=== PATIENT | female | born 1940 | race Caucasian/White ===

== ENCOUNTER → 2019-11-14 13:05 | Outpatient (CLI) | payer MEDICARE, SELFPAY ==
--- NOTE | 2019-11-14 13:27 | DI.CT.S_ITS ---
PROCEDURE: CT CHEST W CON INDICATIONS: Lobar pneumonia, unspecified organism TECHNIQUE: After the administration of intravenous contrast, 5 mm thick sections acquired from the pulmonary apices to the posterior costophrenic angles. 1 mm axial lung, 5 mm thick coronal and sagittal reformats and 7 mm axial MIP were acquired. For radiation dose reduction, the following was used: automated exposure control, adjustment of mA and/or kV according to patient size. COMPARISON: None. FINDINGS: Image quality: Excellent. Lungs and pleura: Loculated pleural effusion in posterior right lower lung field is seen with peripheral enhancement and measures up to 9.9 x 8.9 x 9.4 cm in largest transverse, AP and craniocaudal dimensions. Adjacent right lower lobe atelectasis is seen. There is also airspace consolidation with central cavitation seen in posterior aspect of right upper lobe along the oblique fissure with associated adjacent atelectasis and bronchiectasis seen in right upper and middle lobe extending to right hilar region. This cavitary space measures up to 4.9 x 2.9 x 9 cm in size with small amount of air-fluid level in its dependent portion. No pneumothorax. Left lung is clear. Central and left peripheral airways are patent and are normal in size. No left-sided pleural effusion. Mediastinum: Heart size is mildly enlarged. No pericardial effusion. Enlarged mediastinal and hilar lymph nodes are seen measures up to 1.5 cm in short axis diameter in precarinal space and 1.7 cm in short axis diameter in right hilar region. Thoracic aorta and central pulmonary arteries are normal in size. Esophagus is normal in caliber. No hiatal hernia. Bones and chest wall: No suspicious bony lesions. No vertebral body compression fractures. No axillary or supraclavicular adenopathy by size criteria. Thyroid gland is within normal limits. Abdomen: Visualized upper abdominal solid organs show well-circumscribed 1 cm hypodensity in anterior right lobe of liver which may represent hepatic cyst . Upper abdominal bowel loops are normal in caliber. IMPRESSION: 1. Cavitary lesion with adjacent atelectasis and internal air-fluid level in posterior aspect of right upper lobe along right major fissure and measures up to 4.9 x 2.9 x 9 cm in size with associated adjacent right upper and lower lobe bronchiectasis and extension to right hilar region. Finding may represent infectious process. Cavitary neoplasm cannot be excluded. 2. Loculated right pleural effusion as above, developing empyema cannot be excluded, consider aspiration of the fluid for more definitive diagnosis. 3. Enlarged mediastinal and hilar lymph nodes suggestive of reactive inflammatory lymphadenopathy. 4. Left lung is clear. Dictated by: Sylvester Hannah M.D. on 11/14/2019 at 16:40 Approved by: Sylvester Hannah M.D. on 11/14/2019 at 16:51
== END ==
PROVIDERS: PCP Family Medicine; Referring Provider Family Medicine; Visit Provider Family Medicine
DX: J18.1 Lobar pneumonia, unspecified organism (principal); R93.89 Abnormal findings on diagnostic imaging of other specified body structures; R63.4 Abnormal weight loss; J90 Pleural effusion, not elsewhere classified; R59.0 Localized enlarged lymph nodes
CPT/HCPCS: 71260; Q9967

== ENCOUNTER → 2022-03-02 14:18 | Outpatient (CLI) | payer MEDICARE, SELFPAY ==
[2022-03-02 19:37] LABS: Add Manual Diff / Slide Review NO; Basophils Absolute Auto 0 /uL (0-100); Basophils Percent Auto 0.6 % (0-2); Eosinophils Absolute Auto 100 /uL (0-450); Eosinophils Percent Auto 1.9 % (2-4); Hematocrit 38.3 % (36-46); Hemoglobin 12.9 g/dL (12.0-16.0); Lymphocytes Absolute Auto 800 /uL (1100-4500); Lymphocytes Percent Auto 15.6 % (25-40); Mean Corpuscular HGB Conc 33.8 % (30-36); Mean Corpuscular Hemoglobin 32.7 PG (26-34); Mean Corpuscular Volume 96.6 fL (80-100); Monocytes Absolute Auto 500 /uL (0-900); Monocytes Percent Auto 9.8 % (3-14); Neutrophils Absolute Auto 3700 /uL (1500-7000); Neutrophils Percent Auto 72.1 % (50-75); Platelet Count 280 X10^3/uL (150-400); Red Blood Cell Count 3.96 X10^6/uL (4.0-5.2); Red Cell Distribution Width 12.7 % (11.6-14.8); White Blood Cell Count 5.1 X10^3/uL (4.5-11.0)
[2022-03-02 19:47] LABS: HEMOLYSIS < 15 (0-50); Iron 118 ug/dL (37-170)
[2022-03-02 19:49] LABS: Alanine Aminotransferase 24 IU/L (<35); Albumin 4.1 g/dL (3.5-5.0); Albumin Globulin Ratio 1.2 (1.0-2.8); Alkaline Phosphatase 39 U/L (38-126); Aspartate Aminotransferase 26 IU/L (14-36); Bilirubin Total 0.5 mg/dL (0.2-1.3); Blood Urea Nitrogen 17 mg/dL (7-17); Calcium 9.7 mg/dL (8.4-10.2); Carbon Dioxide 30 mmol/L (22-32); Chloride 94 mmol/L (98-107); Estimated Glomerular Filt Rate > 60 mL/min (>60); Globulin 3.3 g/dL (1.7-4.1); Glucose 93 mg/dL (80-110); HEMOLYSIS < 15 (0-50); Magnesium 1.9 mg/dL (1.6-2.3); Potassium 4.7 mmol/L (3.4-5.1); Sodium 130 mmol/L (137-145); Total Protein 7.4 g/dL (6.3-8.2)
[2022-03-02 19:51] LABS: Hemoglobin A1C% w Est Avg Glu 5.2 % (4.0-6.0)
[2022-03-02 19:57] LABS: Appearance Urine UA CLEAR; Bilirubin Urine UA NEGATIVE (NEGATIVE); Color Urine UA YELLOW; Glucose Urine UA NEGATIVE (Negative); Ketones Urine UA NEGATIVE (NEGATIVE); Leukocyte Esterase Urine UA NEGATIVE (NEGATIVE); Nitrite Urine UA NEGATIVE (Negative); Occult Blood Urine UA NEGATIVE (Negative); Protein Urine UA NEGATIVE (Negative); Specific Gravity Urine UA 1.015 (1.000-1.035); Urobilinogen Urine UA 0.2 E.U./dL (0.2)
[2022-03-02 19:58] LABS: NT-proBNP (BNP-Adult 18+) 841 pg/mL (<450)
[2022-03-02 20:00] LABS: Percent Iron Saturation 36 % (15-50); Total Iron Binding Capacity 326 ug/dL (265-497); Transferrin 257 mg/dL (206-381)
[2022-03-02 20:05] LABS: Free T3, Triiodothyronine Free 3.27 pg/mL (2.77-5.27); Free T4, Direct Thyroxine 1.13 ng/dL (0.78-2.19)
[2022-03-02 20:19] LABS: Bacteria Urine Occasional (0-1); Culture Indicated Urine Cult Not Indicated; RBC Urine 0-1/HPF (0-5/HPF); Squamous Epithelial Cell Urine 0-1 /HPF (0-5/HPF); Thyroid Stimulating Hormone 1.49 uIU/mL (0.47-4.68); WBC Urine 0-1/HPF (0-5/HPF)
[2022-03-02 20:24] LABS: Ferritin 85 ng/mL (11-264)
[2022-03-02 20:56] LABS: Folate > 20.0 ng/mL (2.76-20.0); Vitamin B12 > 1000 pg/mL (239-931)
[2022-03-05 15:21] LABS: Immunoglobulin A, Serum 264 mg/dL (64-422); Immunoglobulin G,Serum 1280 mg/dL (586-1602); Immunoglobulin M, Serum 44 mg/dL (26-217)
== END ==
PROVIDERS: Internal Medicine Cardiovascular Disease; PCP Family Medicine
DX: R00.1 Bradycardia, unspecified (principal); R73.09 Other abnormal glucose; R06.02 Shortness of breath; I10 Essential (primary) hypertension; J90 Pleural effusion, not elsewhere classified; D64.9 Anemia, unspecified; E03.2 Hypothyroidism due to medicaments and other exogenous substances; R35.1 Nocturia; R73.01 Impaired fasting glucose; R93.89 Abnormal findings on diagnostic imaging of other specified body structures; Z87.891 Personal history of nicotine dependence; R53.81 Other malaise
CPT/HCPCS: 80053; 81001; 82607; 82728; 82746; 82784; 83036; 83540; 83550; 83735; 83880; 84155; 84439; 84443; 84481; 85025; 86334; 86335; 87086

== ENCOUNTER → 2022-03-03 09:27 | Outpatient (CLI) | payer MEDICARE, SELFPAY ==
[2022-03-03 20:17] LABS: LDL Cholesterol Direct 118 mg/dL (<100)
== END ==
PROVIDERS: PCP Family Medicine
DX: I10 Essential (primary) hypertension (principal)
CPT/HCPCS: 83721

== ENCOUNTER → 2022-07-28 13:34 | Outpatient (CLI) | payer MEDICARE, SELFPAY ==
[2022-07-28 19:54] LABS: HEMOLYSIS < 15 (0-50); Iron 97 ug/dL (37-170)
[2022-07-28 20:04] LABS: Magnesium 1.9 mg/dL (1.6-2.3)
[2022-07-28 20:07] LABS: Alanine Aminotransferase 25 IU/L (<35); Albumin 4.4 g/dL (3.5-5.0); Albumin Globulin Ratio 1.3 (1.0-2.8); Alkaline Phosphatase 46 U/L (38-126); Aspartate Aminotransferase 29 IU/L (14-36); BUN Creatinine Ratio 21.8 (6-22); Bilirubin Total 0.4 mg/dL (0.2-1.3); Blood Urea Nitrogen 17 mg/dL (7-17); Calcium 9.5 mg/dL (8.4-10.2); Carbon Dioxide 30 mmol/L (22-32); Chloride 88 mmol/L (98-107); Estimated Glomerular Filt Rate > 60 mL/min (>60); Globulin 3.3 g/dL (1.7-4.1); Glucose 127 mg/dL (80-110); HEMOLYSIS < 15 (0-50); Percent Iron Saturation 28 % (15-50); Potassium 4.7 mmol/L (3.4-5.1); Sodium 127 mmol/L (137-145); Total Iron Binding Capacity 343 ug/dL (265-497); Total Protein 7.7 g/dL (6.3-8.2); Transferrin 263 mg/dL (206-381)
[2022-07-28 20:08] LABS: NT-proBNP (BNP-Adult 18+) 289 pg/mL (<450)
[2022-07-29 20:36] LABS: x Labcorp Estim. Avg Glu (eAG) 120 mg/dL (.); x Labcorp Hemoglobin A1c 5.8 % (4.8-5.6)
[2022-08-02 17:07] LABS: Immunoglobulin A, Serum 291 mg/dL (64-422); Immunoglobulin G,Serum 1318 mg/dL (586-1602); Immunoglobulin M, Serum 44 mg/dL (26-217)
== END ==
PROVIDERS: Internal Medicine Cardiovascular Disease; PCP Family Medicine
DX: R06.02 Shortness of breath; I10 Essential (primary) hypertension; J90 Pleural effusion, not elsewhere classified; Z87.891 Personal history of nicotine dependence; R93.89 Abnormal findings on diagnostic imaging of other specified body structures; I49.3 Ventricular premature depolarization; D64.9 Anemia, unspecified; R35.1 Nocturia; R73.09 Other abnormal glucose
CPT/HCPCS: 80053; 82784; 83036; 83540; 83550; 83735; 83880; 84155; 86334; 86335

== ENCOUNTER → 2022-08-25 11:57 | Outpatient (CLI) | payer MEDICARE, SELFPAY ==
[2022-08-25 20:36] LABS: Sodium Urine Random 41 mmol/L (30-90)
[2022-08-25 20:42] LABS: BUN Creatinine Ratio 21.2 (6-22); Blood Urea Nitrogen 18 mg/dL (7-17); Calcium 9.6 mg/dL (8.4-10.2); Carbon Dioxide 32 mmol/L (22-32); Chloride 92 mmol/L (98-107); Estimated Glomerular Filt Rate > 60 mL/min (>60); Glucose 88 mg/dL (80-110); HEMOLYSIS < 15 (0-50); Potassium 4.7 mmol/L (3.4-5.1); Sodium 130 mmol/L (137-145)
[2022-08-27 15:16] LABS: Osmolality Urine 423 mOsmol/kg (.); Osmolality, Serum 275 mOsmol/kg (280-301)
== END ==
PROVIDERS: PCP Family Medicine; Visit Provider Family Medicine
DX: E87.1 Hypo-osmolality and hyponatremia (principal); I10 Essential (primary) hypertension; R55 Syncope and collapse; R73.03 Prediabetes
CPT/HCPCS: 80048; 83930; 83935; 84300; 84588

== ENCOUNTER → 2022-08-26 09:10 | Outpatient (CLI) | payer MEDICARE, SELFPAY ==
[2022-08-26 20:20] LABS: Cortisol AM (Before 10AM) 14.6 ug/dL (4.46-22.7)
== END ==
PROVIDERS: PCP Family Medicine; Visit Provider Family Medicine
DX: E87.1 Hypo-osmolality and hyponatremia (principal); I10 Essential (primary) hypertension; R55 Syncope and collapse; R73.03 Prediabetes
CPT/HCPCS: 82533

== ENCOUNTER → 2022-12-09 13:00 | Outpatient (CLI) | payer MEDICARE, SELFPAY ==
[2022-12-09 19:55] LABS: BUN Creatinine Ratio 20.7 (6-22); Blood Urea Nitrogen 17 mg/dL (7-17); Calcium 10.1 mg/dL (8.4-10.2); Carbon Dioxide 30 mmol/L (22-32); Chloride 93 mmol/L (98-107); Estimated Glomerular Filt Rate > 60 mL/min (>60); Glucose 129 mg/dL (80-110); HEMOLYSIS < 15 (0-50); Potassium 4.9 mmol/L (3.4-5.1); Sodium 131 mmol/L (137-145)
[2022-12-09 20:03] LABS: NT-proBNP (BNP-Adult 18+) 432 pg/mL (<450)
== END ==
PROVIDERS: PCP Family Medicine; Visit Provider Family Medicine
DX: I50.9 Heart failure, unspecified (principal); E87.1 Hypo-osmolality and hyponatremia; R79.89 Other specified abnormal findings of blood chemistry
CPT/HCPCS: 80048; 83880

== ENCOUNTER → 2023-07-06 11:27 | Outpatient (CLI) | payer MEDICARE, SELFPAY ==
[2023-07-06 21:15] LABS: BUN Creatinine Ratio 34.4 (6-22); Blood Urea Nitrogen 33 mg/dL (7-17); Carbon Dioxide 32 mmol/L (22-32); Chloride 99 mmol/L (98-107); Estimated Glomerular Filt Rate 58 mL/min (>60); Glucose 90 mg/dL (80-110); HEMOLYSIS < 15 (0-50); Potassium 4.8 mmol/L (3.4-5.1); Sodium 133 mmol/L (137-145)
[2023-07-06 21:27] LABS: Hemoglobin A1C% w Est Avg Glu 5.8 % (4.0-6.0)
== END ==
PROVIDERS: PCP Family Medicine; Visit Provider Family Medicine
DX: R73.03 Prediabetes (principal); E87.1 Hypo-osmolality and hyponatremia
CPT/HCPCS: 80048; 83036

== ENCOUNTER → 2023-08-10 10:54 | Outpatient (CLI) | payer MEDICARE, SELFPAY ==
[2023-08-10 20:18] LABS: BUN Creatinine Ratio 25.5 (6-22); Blood Urea Nitrogen 25 mg/dL (7-17); Calcium 9.6 mg/dL (8.4-10.2); Carbon Dioxide 31 mmol/L (22-32); Chloride 96 mmol/L (98-107); Estimated Glomerular Filt Rate 57 mL/min (>60); Glucose 70 mg/dL (80-110); HEMOLYSIS < 15 (0-50); Potassium 4.5 mmol/L (3.4-5.1); Sodium 131 mmol/L (137-145)
== END ==
PROVIDERS: PCP Family Medicine; Visit Provider Family Medicine
DX: G47.00 Insomnia, unspecified (principal)
CPT/HCPCS: 80048

== ENCOUNTER → 2023-11-15 14:47 | Outpatient (CLI) | payer MEDICARE, SELFPAY | PROVIDERS: PCP Family Medicine; Visit Provider Physician Assistant Medical | DX: R30.0 Dysuria (principal) | CPT/HCPCS: 87086 ==

== ENCOUNTER → 2024-01-24 14:26 | Outpatient (CLI) | payer MEDICARE, SELFPAY ==
[2024-01-24 19:38] LABS: Blood Urea Nitrogen 25 mg/dL (7-17); Calcium 10.1 mg/dL (8.4-10.2); Carbon Dioxide 33 mmol/L (22-32); Chloride 96 mmol/L (98-107); Estimated Glomerular Filt Rate 58 mL/min (>60); Glucose 141 mg/dL (80-110); HEMOLYSIS < 15 (0-50); Potassium 4.3 mmol/L (3.4-5.1); Sodium 132 mmol/L (137-145)
== END ==
PROVIDERS: PCP Family Medicine; Referring Provider Family Medicine; Visit Provider Family Medicine
DX: I10 Essential (primary) hypertension (principal); E87.1 Hypo-osmolality and hyponatremia
CPT/HCPCS: 80048

== ENCOUNTER → 2024-02-16 11:20 | Outpatient (CLI) | payer MEDICARE, SELFPAY ==
[2024-02-16 20:06] LABS: Add Manual Diff / Slide Review NO; Basophils Absolute Auto 0 /uL (0-100); Basophils Percent Auto 0.7 % (0-2); Eosinophils Absolute Auto 200 /uL (0-450); Eosinophils Percent Auto 3.9 % (2-4); Hemoglobin 13.1 g/dL (12.0-16.0); Lymphocytes Absolute Auto 800 /uL (1100-4500); Lymphocytes Percent Auto 19.1 % (25-40); Mean Corpuscular HGB Conc 33.5 % (30-36); Mean Corpuscular Hemoglobin 32.3 PG (26-34); Mean Corpuscular Volume 96.4 fL (80-100); Monocytes Absolute Auto 400 /uL (0-900); Monocytes Percent Auto 9.9 % (3-14); Neutrophils Absolute Auto 2900 /uL (1500-7000); Neutrophils Percent Auto 66.4 % (50-75); Platelet Count 315 X10^3/uL (150-400); Red Blood Cell Count 4.04 X10^6/uL (4.0-5.2); Red Cell Distribution Width 12.7 % (11.6-14.8); White Blood Cell Count 4.3 X10^3/uL (4.5-11.0)
[2024-02-16 20:17] LABS: HEMOLYSIS < 15 (0-50); Iron 122 ug/dL (37-170)
[2024-02-16 20:21] LABS: Appearance Urine UA CLEAR; Bilirubin Urine UA NEGATIVE (NEGATIVE); Color Urine UA YELLOW; Glucose Urine UA NEGATIVE (Negative); Ketones Urine UA NEGATIVE (NEGATIVE); Leukocyte Esterase Urine UA NEGATIVE (NEGATIVE); Nitrite Urine UA NEGATIVE (Negative); Occult Blood Urine UA NEGATIVE (Negative); Protein Urine UA NEGATIVE (Negative); Urobilinogen Urine UA 0.2 E.U./dL (0.2)
[2024-02-16 20:35] LABS: Alanine Aminotransferase 29 IU/L (<35); Albumin 4.2 g/dL (3.5-5.0); Albumin Globulin Ratio 1.2 (1.0-2.8); Alkaline Phosphatase 48 U/L (38-126); Aspartate Aminotransferase 35 IU/L (14-36); BUN Creatinine Ratio 21.7 (6-22); Bilirubin Total 0.6 mg/dL (0.2-1.3); Blood Urea Nitrogen 20 mg/dL (7-17); Calcium 9.9 mg/dL (8.4-10.2); Carbon Dioxide 31 mmol/L (22-32); Chloride 99 mmol/L (98-107); Estimated Glomerular Filt Rate > 60 mL/min (>60); Globulin 3.4 g/dL (1.7-4.1); Glucose 92 mg/dL (80-110); HEMOLYSIS < 15 (0-50); Magnesium 1.8 mg/dL (1.6-2.3); Percent Iron Saturation 42 % (15-50); Potassium 4.5 mmol/L (3.4-5.1); Sodium 133 mmol/L (137-145); Total Iron Binding Capacity 288 ug/dL (265-497); Total Protein 7.6 g/dL (6.3-8.2); Transferrin 268 mg/dL (206-381)
[2024-02-16 20:36] LABS: NT-proBNP (BNP-Adult 18+) 436 pg/mL (<450)
[2024-02-16 20:45] LABS: Amorphous Sediment Urine 1+; Bacteria Urine None Seen; Culture Indicated Urine Cult Not Indicated; RBC Urine None Seen (0-5/HPF); Squamous Epithelial Cell Urine None Seen (0-5/HPF); Urine Volume 10mL (spun); WBC Urine None Seen (0-5/HPF)
[2024-02-16 21:01] LABS: Ferritin 80 ng/mL (11-264)
[2024-02-16 21:27] LABS: Folate > 20.0 ng/mL (2.76-20.0); Vitamin B12 > 1000 pg/mL (239-931)
== END ==
PROVIDERS: Internal Medicine Cardiovascular Disease; PCP Family Medicine
DX: I49.3 Ventricular premature depolarization (principal); R06.02 Shortness of breath; R77.1 Abnormality of globulin; D64.9 Anemia, unspecified; R35.1 Nocturia
CPT/HCPCS: 80053; 81001; 82607; 82728; 82746; 82784; 83540; 83550; 83735; 83880; 83883; 84155; 85025; 86334; 86335

== ENCOUNTER → 2025-01-14 10:57 | Outpatient (CLI) | payer MEDICARE, SELFPAY ==
[2025-01-14 19:05] LABS: Add Manual Diff / Slide Review NO; Hematocrit 38.6 % (36-46); Hemoglobin 13.2 g/dL (12.0-16.0); Lymphocytes Absolute Auto 1000 /uL (1100-4500); Mean Corpuscular HGB Conc 34.1 % (30-36); Mean Corpuscular Hemoglobin 32.0 PG (26-34); Mean Corpuscular Volume 93.8 fL (80-100); Platelet Count 289 X10^3/uL (150-400)
[2025-01-14 19:26] LABS: Blood Urea Nitrogen 28 mg/dL (7-17); Calcium 9.9 mg/dL (8.4-10.2); Carbon Dioxide 30 mmol/L (22-32); Chloride 97 mmol/L (98-107); Cholesterol 252 mg/dL (140-199); Estimated Glomerular Filt Rate 57 mL/min (>60); Glucose 106 mg/dL (70-99); HDL Cholesterol 102 mg/dL (40-60); HEMOLYSIS < 15 (0-50); Potassium 4.4 mmol/L (3.4-5.1); Sodium 134 mmol/L (137-145); Triglycerides 66 mg/dL (35-150)
[2025-01-14 19:47] LABS: TSH w/ Reflex to FT4 2.55 uIU/mL (0.47-4.68)
== END ==
PROVIDERS: PCP Family Medicine; Visit Provider Family Medicine
DX: I10 Essential (primary) hypertension (principal); E87.1 Hypo-osmolality and hyponatremia; F51.05 Insomnia due to other mental disorder; F99 Mental disorder, not otherwise specified; Z87.898 Personal history of other specified conditions
CPT/HCPCS: 80048; 80061; 84443; 85025